=== PATIENT | female | born 2005 | race Caucasian/White ===

== ENCOUNTER 2024-12-28 18:31 | Outpatient (REF) | payer OTHER, SELFPAY ==
[2024-12-28 19:25] LABS: Glucose Negative (Negative)
[2024-12-28 19:36] LABS: C & S Indicated? Yes; RBC 0-2 HPF (0-2); WBC 20-50 HPF (0-5)
== END 2024-12-28 18:32 | disposition home or self-care (01) ==
LOC: LBN 18:31
PROVIDERS: PCP Nurse Practitioner Family; Visit Provider Nurse Practitioner Family
DX: R39.9 Unspecified symptoms and signs involving the genitourinary system (principal)
CPT/HCPCS: 87077; 81003; 81015; 87086; 87186